=== PATIENT | male | born 1950 | race Caucasian/White ===

== ENCOUNTER 2016-11-18 10:36 | Day surgery (SDC) | payer OTHER ==
[~2016-11-18] VITALS: Ht 180.3 cm; Wt 104.0 kg
[~2016-11-18 10:36] MED LIST: ALBU8.5H2 INHALATION; ASPI-973 PO; BECL8.7A6 INHALATION; CHOL10008 PO; LIP40 PO; LOSA100T29 PO; Lactated Ringer's 1,000 ML IV ONE; Lactated Ringer's 1,000 ML IV SCH
[2016-11-18] MEDS ORDERED: Propofol 10,000 mCg/mL 20 mL Inj ONE (10:37)
[2016-11-18] MEDS ORDERED: Dexamethasone 4 mg/mL Inj ONE (10:37)
--- NOTE | 2016-11-18 11:10 | PCM.HPANE ---
Patient Data Date of Service: Nov 18, 2016 Surgeon Admitting Provider: Attending Provider:Issac Esqueda DO Primary Care Physician:Jalen Alston MD Other Provider:Robert Talbert Anesthesia Reason for Visit Right Carpal Tunnel Syndrome Ht/WT & BMI Height (Feet): 5 Height (Inches): 11.00 Weight (Kilograms): 106.141 Body Mass Index 32.00 Allergies Coded Allergies: No Known Allergies (Unverified , 11/15/16) Past Anesthesia History Anesthesia History: Denies:: Abnormal Airway, Anesthesia Reactions, Difficult Intubation, Fam Anesthesia Reaction, Malignant Hyperthermia Diabetes History Hx Diabetes?: No MRSA MRSA: No Medications Blood Thinner: Aspirin Hypertension Medication: Yes (LOSARTAN) Home Meds Incl Beta Navi: No Reported Medications Cholecalciferol (Vitamin D3) (Vitamin D3)1,000 Unit Tab.chew1,000 Unit PO DAILY 10/22/16 Beclomethasone Dipropionate (Qvar)8.7 Gm Aer.w.adap1 Puff INHALATION BID PRN For Shortness of Breath #8.7 GM 10/22/16 Albuterol HFA (Proair HFA)8.5 Gm Hfa.aer.ad2 Puffs INHALATION Q4H PRN For Shortness of Breath #1 INHALER 10/22/16 Losartan Potassium 100 Mg [id number] Mg PO DAILY 10/22/16 Atorvastatin (Lipitor)40 Mg [id number] Mg PO DAILY Ref 0 10/22/16 Aspirin 81 Mg [id number] Mg PO DAILY Ref 0 10/22/16 History History of ENT Problems?: Yes HEENT History: Positive for:: Sinus Problem (non allergic rhinitis) TMJ Denies:: Abnormal Airway Cataracts Difficult Intubation Dysphagia Glaucoma Other HEENT Pertinent History: S/P TONSILLECTOMY Hx of Heart Problems?: Yes Cardiovascular History: Positive for:: 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 ) Atrial Fibrillation (HX OF 2001;NOW IN SINUS RHYTHM) Cardiac Surgery (HEART CATH,2 VESSEL CABG, MVR @ [facility] 03/2002) Chest Pain Congestive Heart Failure (VS ASTHMA) Coronary Artery Disease Hypertension (HYPERLIPIDEMIA) Irregular Heartbeat (HX OF A FIB) Valvular Heart Disease (S/P MVR-ANNUPLASTY RING 2001) Denies:: AICD Heart Murmur (ECHO 12/2013 EF 55-60%) Pacemaker Peripheral Vascular Rheumatic Fever Thrombophlebitis Hx of Respiratory Problem?: Yes Respiratory History: Positive for:: Asthma (VS CHF) Pneumonia (remote hx of) Use of Inhalers / NEBS Denies:: COPD Emphysema Oxygen Administration Tuberculosis Use of C-PAP Machine Hx Neurologic Problems?: Yes Neurological History: Positive for:: Headaches (rare intermittent migraines) Denies:: CVA Dementia Dizziness Multiple Sclerosis Parkinson's Disease Seizures TIA Hx of GI Problems?: Yes Gastrointestinal History: Positive for:: Gastroesphageal Reflux (occasional - controlled / Pt; Denies Sx DOS) Denies:: Cirrhosis Gall Bladder Disease Gastrointestinal Bleeding Heartburn Hepatitis Hiatal Hernia Liver Disease Rectal Bleeding Hx of Problems?: No Genitourinary History: Denies:: Kidney Stones Urinary Tract Infection Male Hx: Denies:: Prostate Problems Scrotal Mass Testicular Surgery Skin History: Denies:: History Skin Disorders? Pressure Ulcers Hx Musculoskeletal Problems?: Yes Musculoskeletal History: Positive for:: Musculoskeletal Trauma (HX FX LT FOOT) Osteoarthritis Denies:: Back Injury Fibromyalgia Joint Replacement Myasthenia Gravis Hx of Psycho/Social Problems?: No Psycho Social History: Denies:: Anxiety Hx Depression Hx Surgeries?: Yes (HEART CATH,2 VESSEL CABG,MVR,TONSILLECTOMY) Hx Any Other Health Problems?: Yes Other History: Denies:: Cancer Endocrine Disease Hospitalization Thyroid Disease History Blood Transfusions: Positive for:: Accept Blood Products? Denies:: Blood Transfusions Hx Diabetes: No Hx Alcohol Use: NoHx Substance Use: No Smoking Status: Never Smoker Have You Smoked inLast 12 mo: No Stop/Bang Treated for Sleep Apnea?: No Do You Have a CPAP Machine?: No S-Snoring: Do You Snore Loudly: No T-Tired: feel tired, fatigued: Yes O-Obsered: Observed not breath: No P-Blood Pressure: treated: Yes B- Body Mass Index > 35 kg/m2: No A- Age over 50: Yes N- Neck Large Circumference: No G- Gender Male: Yes CHRISTO Total Score: 4 CHRISTO Risk Assessment: High Risk, =/>3 Yes Risk Assessment Category Category 1A: Patient has history of documented sleep apnea, and HAS NOT received any narcotic, sedative or anesthesia administration during this stay. Category 1B: Patient has history of documented sleep apnea, and HAS received any narcotic , sedative or anesthesia administration during this stay Category 2: Patient has SUSPECTED Obstructive Sleep Apnea, and HAS received any narcotic , sedative or anesthesia administration during this stay. Category 3: Patient has SUSPECTED Obstructive Sleep Apnea and HAS NOT received narcotic, sedative or anesthesia administration during this stay. Category 4: Outpatient in Procedural Areas with known sleep apnea or who screen positive for High Risk via the STOP/BANG questionnaire. Exam Exam General Appearance: Alert, Oriented X3, Cooperative, No Acute Distress HEENT/AIRWAY: MP 3 Lungs: Clear to Auscultation, Normal Air Movement Heart: Exam Unremarkable, Normal S1 Plan Impression Patient chart reviewed, patient interviewed and anesthestic plan with risks, benefits, and alternatives discussed, and informed consent obtained. ASA Physical Status: ASA3 Severe Disease Anesthetic Plan: MAC, Regional Block Bene/Risks/Altern/Consents: Yes HP Complete Prior to Induction: Yes Yevgeniy Gillis DO Nov 18, 2016 11:10
[2016-11-18 11:28] VITALS: BP 138/78; PULSE 69; RESP 18; O2SAT 99
[2016-11-18] MEDS ORDERED: HYDROcodone-APAP 5-325 mg Tablet PO PRN (15:05)
[2016-11-18 15:30] VITALS: BP 122/70; PULSE 78; RESP 16; O2SAT 98
[2016-11-18 16:00] VITALS: BP 122/69; PULSE 70; RESP 15; O2SAT 99
--- NOTE | 2016-11-18 16:30 | PCM.ANEP1 ---
Post Anesthesia Phase 1 PACU Phase 1 Assessment Date of Service: Nov 18, 2016 Vital Signs Vital Signs Date Time Temp Pulse Resp B/P Pulse Ox O2 Delivery O2 Flow Rate FiO2 11/18/16 15:30 36.4 78 16 122/70 98 Room Air 11/18/16 11:28 36.6 69 18 138/78 99 Room Air Anesthetic Administered: MAC, Regional Block Level of Alertness: Awake, talking SHEPHERD's with Equal Strength: Yes Pain: No Nausea or Vomiting: No Lungs: Clear to Auscultation, Normal Air Movement Dermatome Level: Full Sensation Yevgeniy Gillis DO Nov 18, 2016 16:30
--- NOTE | 2016-11-18 16:32 | PCM.ANEP2 ---
Post Anesthesia Evaluation ASA/CMS Post Anesthesia Date of Service: Nov 18, 2016 VS in Patient's Normal Range?: Yes Resp Stable; Airway Patent?: Yes CV Function & Hydration Stable: Yes Mental Status Recovered?: Yes Pain control Satisfactory?: Yes N/V Control Satisfactory?: Yes Yevgeniy Gillis DO Nov 18, 2016 16:32
--- NOTE | 2016-11-19 08:26 | OP ---
[address] [address] OPERATIVE REPORT PATIENT: DEVON COFFEY : 1950 MR#: [id number] ADMIT: 11/18/2016 JOB ID: [id number] DATE OF SURGERY: 11/18/2016 PREOPERATIVE DIAGNOSIS(ES): Right carpal tunnel syndrome. POSTOPERATIVE DIAGNOSIS(ES): Right carpal tunnel syndrome. PROCEDURE: Right open carpal tunnel release. SURGEON: Issac Esqueda D.O. ANESTHESIA: Blu block. HISTORY: The patient is a pleasant 66-year-old male with a longstanding history of right hand pain and paresthesias. He failed conservative treatment with nighttime bracing, was diagnosed carpal tunnel syndrome. After failing conservative treatment, I gave the patient the option to proceed with a right open carpal tunnel release. He understood the risks include, but not limited to, neurovascular injury, tendon injury, infection, failure to resolve the patient's preoperative symptoms, stiffness, persistent pain which may require further intervention. The patient had all questions answered. Consent was signed and placed in the chart. PROCEDURE IN DETAIL: The patient was brought to the operative suite and placed supine on the operating room table. Surgical time-out was performed. Everyone in the room was in agreement. After appropriate anesthesia was obtained, the right hand was then prepped and draped in a sterile fashion. A standard 2 cm longitudinal incision was made in line with the radial aspect of the ring finger and the ulnar aspect of the palmaris longus. The incision was kept distal to the wrist crease and proximal to Brown cardinal line. Subcutaneous tissues were dissected. Bipolar electrocautery utilized to maintain hemostasis throughout the procedure. The palmar fascia was first identified and incised longitudinally in line with the skin incision followed by exposure of the underlying transverse carpal ligament. Transverse carpal ligament was then released in its entirety to include the distal extent of the antebrachial fascia. Copious irrigation was performed followed by closure of the skin with 5-0 nylon in a simple interrupted fashion. The patient was then placed in a bulky soft dressing. ESTIMATED BLOOD LOSS: Less than 1 cc. COMPLICATIONS: None. DISPOSITION: The patient tolerated the procedure well. Anesthesia was reversed and the patient was transferred back to recovery. POSTOPERATIVE PLAN: The patient will followup in office in two weeks. We will remove the patient's sutures at that time and have him start working on range of motion and scar mobilization.
== END 2016-11-18 23:59 | disposition home or self-care (01) ==
LOC: SAS 10:36
PROVIDERS: ATTEND Orthopaedic Surgery
DX: G56.01 Carpal tunnel syndrome, right upper limb (principal); I10 Essential (primary) hypertension; I25.10 Atherosclerotic heart disease of native coronary artery without angina pectoris; Z95.1 Presence of aortocoronary bypass graft; J45.909 Unspecified asthma, uncomplicated; Z79.82 Long term (current) use of aspirin
CPT/HCPCS: 64721; J1100; J2250; J7120